=== PATIENT | female | born 1990 | race Caucasian/White ===

== ENCOUNTER 2017-09-27 06:00 | Inpatient (IN) | payer BC, OTHER ==
[~2017-09-27 06:00] MED LIST: Lactated Ringers 1,000 ML IV SCH; Sodium Chloride 0.9% 10 ML Syringe FLUSH PRN
[2017-09-27] MEDS ORDERED: Oxytocin/Normal Saline 30 UNIT/500 ML BAG IV SCH (07:00)
[2017-09-27] MEDS ORDERED: Citric Acid/Sodium Citrate Solution 30 ML Cup PO ONE ×2 (07:00→07:27)
[2017-09-27] MEDS ORDERED: ceFAZolin 2 GM in Premix Bag 1 BAG IV ONE ×2 (07:00→12:43)
[2017-09-27] MEDS ORDERED: Oxytocin/Normal Saline 60 UNIT/1,000 ML BAG ONE (07:21)
[2017-09-27] MEDS ORDERED: Famotidine 20 MG/2 ML SDV IVPUSH ONE (13:36)
[2017-09-27] MEDS ORDERED: Promethazine 25 MG/ML SDV IM ONE (13:37)
[2017-09-27] MEDS ORDERED: Ketorolac 30 MG/ML SDV ONE ×2 (15:42→22:02)
[2017-09-27] MEDS ORDERED: Ketorolac 30 MG/ML SDV IVPUSH ONE ×2 (16:00→22:07)
--- NOTE | 2017-09-27 18:20 | OR ---
DATE: 09/27/2017 PROCEDURES: 1. Elective repeat low-transverse section. 2. Pfannenstiel keloid scar revision. 3. Vacuum-assisted delivery. MOTORCYCLE DESIGNER: Hannah Lopez MD. PREOPERATIVE DIAGNOSES: 1. A 27-year-old, G3, P2, at 39 and 3/7 weeks' gestation. 2. Elective repeat low-transverse section. 3. Keloid scar. 4. A positive blood type. 5. Rubella immune. 6. Group B streptococcus negative. POSTOPERATIVE DIAGNOSES: 1. A 27-year-old, G3, now para 3, at 39 and 3/7 weeks' gestation. 2. Elective repeat low-transverse section. 3. Keloid scar, revised. 4. A positive blood type. 5. Rubella immune. 6. Group B streptococcus negative. 7. Viable female infant, 7 pounds 10 ounces, scores 9 and 9. 8. Extensive pelvic scarring with extremely thin lower uterine segment/uterine window. FINDINGS: This delightful 27-year-old, G3, P2, presented at 39 and 3/7 weeks' gestation for her scheduled elective repeat section and keloid scar revision. She had no further questions and we proceeded as scheduled. She received 2 g of Ancef IV preop on her way to the OR. She underwent spinal anesthesia with excellent results. She was prepped and draped in the usual sterile manner. A time-out was performed in my presence. A Garcia catheter had been placed. Her keloid scar was removed with the scalpel and cautery and discarded. Cautery was then used down through the subcutaneous tissue. She was found to have extensive scarring of the fascial area. It was quite difficult to develop fascial flaps. We were able to identify only a small amount of muscular tissue. We were able to develop the superior and inferior fascial flaps with blunt and sharp dissection, though it was extremely difficult as the tissue was essentially all scarred together. Much of the peritoneum was scarred onto the anterior aspect of the uterus. We were able to dissect this off with cautery and blunt dissection. There were filmy adhesions that were extremely adherent to the front part of the uterus and when these were , we did notice some fairly brisk bleeding from the left corner of the uterus. The previous scar was identified and was noted to be extremely thin. To avoid the left side, where the area risk of bleeding was, we did enter the old scar area on the central and right side with the scalpel and return of a large amount of clear fluid was noted. The incision was extended bilaterally and the vertex was elevated up into the incision. We extended it just enough to place the vacuum cup. The vacuum was then used to deliver the vertex, followed by the remainder of the baby without difficulty. The viable female infant was delivered and had scores of 9 and 9 at 1 and 5 minutes respectively and was later found to weigh 7 pounds 10 ounces and had spontaneous cry at . The cord was doubly clamped and cut and found to have 3 vessels and a cord blood sample was obtained. The baby was carried over to the awaiting parents by Dr. Lopez and then to the warmer and waiting nursery staff. The placenta was removed and later inspected and found to be complete intact with a central cord insertion and 3-vessel cord as noted. Uterus was wiped clean and dry. Was not exteriorized primarily due to the scarring. Examination of the gutter showed them to be dry. The bleeding on the left side had stopped. There was no sign of active bleeding and no significant clots. Small clot was removed from the left side. The anterior lower uterine segment was extremely thin. The uterine incision edges were grasped with Johnson forceps and closed with a running locking #1 Vicryl suture with excellent results. Examination showed it to be hemostatic. Gutters were again examined with no sign of bleeding or clots. The incision was examined and appeared hemostatic. We elected not to put a 2nd layer in. Dr. Lopez was excused from the case for an ER patient. Peritoneum and muscle layer were brought together with a running #1 Vicryl stitch with good results. The fascial layer was brought together with a looped PDS running stitch without complications. The subcutaneous layer was irrigated and examined. There was no sign of bleeding. The skin edges were brought together with juan luis. The uterus remained firm. No sign of active bleeding. The patient appeared stable. The Pitocin was running. IV infusion per protocol. ESTIMATED BLOOD LOSS: 300 mL. URINE OUTPUT: 100 mL of clear/harry urine. The patient was in stable condition and transferred to the recovery room. There were no intraoperative complications. With her excessive scarring and to very thin lower uterine segment, would recommend that if this patient has another delivery that she likely deliver where ENERGY ASSISTANT is available for her surgery, whether that be here in [place] with ENERGY ASSISTANT available for her at the time or at a tertiary center. We will follow other routine and postop orders and anticipate likely going home on postop day #2 or #3. Further management pending her clinical course. [facility] /[id number]
[2017-09-27] MEDS ORDERED: Promethazine 25 MG/ML SDV ONE (20:52)
[2017-09-28] MEDS ORDERED: Ketorolac 30 MG/ML SDV ONE (03:47)
[2017-09-28] MEDS ORDERED: Bisacodyl 10 MG Supp RECTAL PRN (11:10)
[2017-09-28] MEDS ORDERED: Ondansetron 4 MG/2 ML SDV IV PRN (11:11)
[2017-09-28] MEDS ORDERED: Promethazine 25 MG/ML SDV IM PRN (11:11)
[2017-09-28] MEDS ORDERED: Benzocaine/Menthol 20%-0.5% Spray 56 GM Canister TOP PRN (11:19)
[2017-09-28] MEDS ORDERED: Acetaminophen 500 MG Tab PO PRN (11:20)
[2017-09-28] MEDS ORDERED: Zolpidem 5 MG Tab PO PRN (11:21)
[2017-09-28] MEDS ORDERED: Hydrocortisone 2.5% Crm 30 GM Tube TOP PRN (11:22)
[2017-09-28] MEDS: Prenatal Multivitamin with Calcium/Folic Acid/Iron Tab PO SCH (11:42)
[2017-09-28] MEDS: Simethicone 80 MG Tab.Chew PO SCH ×4 (11:42→21:35)
[2017-09-28] MEDS: Docusate Sodium 100 MG Cap PO SCH ×2 (11:42→21:35)
[2017-09-28] MEDS: Acetaminophen/oxyCODONE 325-5 MG Tab PO PRN ×3 (12:19→21:35)
[2017-09-28] MEDS: Ibuprofen 600 MG Tab PO SCH ×3 (12:26→21:35)
--- NOTE | 2017-09-28 13:48 | PCM.SN ---
- Free Text/Narrative Note: 09-28-17 POD #1/ PPD #1 delivered yesterday ERCS has had a lot of itching with anesthesia, however, that is improving anesthesia resolving. hughes out, voiding ok. has had >7L out dressing off. no new drainage. incision looks good. eating ok. going well. VSS afebrile exam negative will check labs in a.m. tomorrow as not done due to excentos issues yesterday. All questions answered. hmb
[2017-09-28] MEDS: Sertraline 50 MG Tab PO SCH (17:18)
[2017-09-29] MEDS: Acetaminophen/oxyCODONE 325-5 MG Tab PO PRN ×5 (01:20→21:00)
[2017-09-29] MEDS: Ibuprofen 600 MG Tab PO SCH ×3 (08:27→18:18)
[2017-09-29] MEDS: Simethicone 80 MG Tab.Chew PO SCH ×4 (08:27→21:06)
[2017-09-29] MEDS: Docusate Sodium 100 MG Cap PO SCH ×2 (08:27→20:59)
[2017-09-29] MEDS: Prenatal Multivitamin with Calcium/Folic Acid/Iron Tab PO SCH (08:27)
[2017-09-29] MEDS: Sertraline 50 MG Tab PO SCH (08:28)
[2017-09-29] MEDS ORDERED: Oxytocin/Normal Saline 30 UNIT/500 ML BAG IV ONE (13:40)
[2017-09-29] MEDS ORDERED: diphenhydrAMINE 50 MG/ML SDV IV ONE (15:36)
[2017-09-29] MEDS ORDERED: Dexamethasone 4 MG/ML SDV IV ONE (15:36)
[2017-09-29] MEDS ORDERED: Ondansetron 4 MG/2 ML SDV IV ONE (15:36)
[2017-09-29] MEDS ORDERED: Ketorolac 30 MG/ML SDV IVPUSH ONE (15:36)
[2017-09-29] MEDS ORDERED: Lactated Ringers 1,000 ML IV ONE (15:36)
[2017-09-29] MEDS ORDERED: Morphine PF 1 MG/ML Amp ONE (15:36)
[2017-09-30] MEDS: Ibuprofen 600 MG Tab PO SCH ×2 (00:20→09:28)
[2017-09-30] MEDS: Acetaminophen/oxyCODONE 325-5 MG Tab PO PRN ×2 (00:52→05:07)
[2017-09-30] MEDS: Docusate Sodium 100 MG Cap PO SCH (08:10)
[2017-09-30] MEDS: Simethicone 80 MG Tab.Chew PO SCH (09:36)
[2017-09-30] MEDS: Prenatal Multivitamin with Calcium/Folic Acid/Iron Tab PO SCH (09:43)
--- NOTE | 2017-09-30 10:58 | PCM.SN ---
- Free Text/Narrative Note: DOS: 09-29-17 Progress Note: Post-op Day #2 Doing well. Eating, voiding, passing gas but hasn't had a BM yet. nursing going well. pain well controlled. Tearful at times, and would like to consider restarting her anti-depressant medication. after a discussion, would like to try Zoloft, and 25mg ordered. exam WNL afeb, VSS She would like to consider an Aquacel dressing after her shower for when she goes home tomorrow. Labs to be done before discharge. home tomorrow pending no problems. All questions answered. hmb
[2017-09-30] MEDS: Sertraline 50 MG Tab PO SCH (12:26)
[2017-09-30] MEDS ORDERED: Promethazine 25 MG/ML SDV IM ONE (12:44)
[2017-09-30 13:31] VITALS: BP 120/72
--- NOTE | 2017-10-04 07:09 | DISCH ---
FINAL DIAGNOSES: 1. A 27-year-old, G3, now P3. 2. A 39 and 3/7 weeks' gestation, elective repeat low-transverse section. 3. depression. 4. Viable female , 7 pounds 11 ounces. Apgars 9 and 9. 5. mother. 6. A positive blood type. 7. Rubella immune. 8. Group B strep negative. 9. Mild anemia/postop anemia. 10.Keloid scar with revision. PROCEDURES FOR THIS ADMISSION: Include: 1. NST interpretation. 2. Repeat elective low transverse section with vacuum-assisted delivery. 3. Keloid scar revision. FINDINGS: This delightful 27-year-old, G3, P2, presented at 39 and 3/7 weeks' gestation as scheduled for elective repeat section and keloid scar revision. Please see her admission H and P and her episode for details. Her NST was reactive. She underwent spinal anesthesia without complication. Her prior keloid scar was removed. We found extensive scarring encountered. Baby was delivered by vacuum assist. A viable female , weighing 7 pounds 11 ounces with scores of 9 and 9. Please see her delivery note for details. Other than the scarring, she had no intraoperative complications. Her postop and course have been uncomplicated. She has remained afebrile with stable vitals. Her clinical course has been unremarkable. Her spinal anesthesia has resolved without difficulty. She is ambulating well. Her Garcia catheter is removed and she is voiding without difficulty. She is eating and has now had a bowel movement. Her bladder and bowel function have returned without difficulty. She has had some depression symptoms and Zoloft has been started. Lab work showed a white count of 10.3 on admission with a recheck of 6.9, postop day #2. Hemoglobin 12.3 with a recheck of 11.3, platelet count 203 on admission with 170 on recheck. Incision is healing well. [place] intact. No sign of dehiscence or infection. She is requesting an Aquacel dressing which will be placed prior to discharge. She is examined on 09/30/2017, and found to be in excellent condition, ready for discharge to home today. Will be discharged home as noted in good condition with a prescription for Percocet 5/325 as she has had excellent pain control while she has been in the hospital. Take one q.i.d. p.r.n. for pain, dispensed #28 with no refills. Zoloft 25 mg daily for a total of 2 weeks, then increase up to 50 mg daily, prescription for 30 tablets with refill x6 of 50 mg tablets. She will continue with her vitamins, iron supplementation, will take her ibuprofen and stool softeners as needed. We will see her back in 1 week for staple removal and wound check and sooner with any problems. The usual and postop orders and instructions. All of her questions were answered. Further management pending her clinical course. [facility] /[id number]
== END 2017-09-30 13:30 | disposition home or self-care (01) | DRG 766 ==
LOC: DL.OB 06:00 → OBSVTOIN 08:35
PROVIDERS: ADMIT Family Medicine; ATTEND Family Medicine
PROC: 10D00Z1 Extraction of Products of Conception, Low, Open Approach (ICD-10-PCS; principal; 2017-09-27)
PROC: 10D07Z6 Extraction of Products of Conception, Vacuum, Via Natural or Artificial Opening (ICD-10-PCS; 2017-09-27)
PROC: 0HB7XZZ Excision of Abdomen Skin, External Approach (ICD-10-PCS; 2017-09-27)
DX: O34.211 Maternal care for low transverse scar from previous cesarean delivery (principal); L91.0 Hypertrophic scar; F53 Mental and behavioral disorders associated with the puerperium, not elsewhere classified; Z3A.39 39 weeks gestation of pregnancy; Z37.0 Single live birth
CPT/HCPCS: 36415; 59025; 85025; 85027; 86850; 86900; 86901; A9270-GY; J0690; J1100; J1200; J1885; J2274; J2405; J2550; J2590; J7120

== ENCOUNTER 2020-06-27 10:45 | Inpatient (IN) | payer OTHER ==
[~2020-06-27 10:45] MED LIST changes: +Acetaminophen 325 MG Tab PO PRN; +Carboprost Tromethamine 250 MCG/1 ML Amp IM PRN; -Lactated Ringers 1,000 ML IV SCH; +Methylergonovine 0.2 MG/1 ML Amp IM PRN; +Misoprostol 400 MCG (4 X 100 MCG TAB) RECTAL PRN; +Ondansetron 4 MG/2 ML SDV IVPUSH PRN; +Oxytocin/Normal Saline 60 UNIT/1,000 ML BAG ONE
[2020-06-27] MEDS: Lactated Ringers 1,000 ML IV SCH ×4 (10:45→19:25)
[2020-06-27] MEDS ORDERED: Citric Acid/Sodium Citrate Solution 30 ML Cup PO ONE (11:00)
[2020-06-27] MEDS ORDERED: Tranexamic Acid 1,000 MG in Sodium Chloride 0.9% 100 ML IV PRN (12:00)
[2020-06-27] MEDS ORDERED: ceFAZolin 2 GM in Premix Bag 1 BAG IV ONE (12:00)
[2020-06-27] MEDS ORDERED: Oxytocin/Normal Saline 30 UNIT/500 ML BAG IV SCH (12:00)
[2020-06-27] MEDS ORDERED: Oxytocin/Normal Saline 30 UNIT/500 ML BAG IV ONE (14:47)
[2020-06-27] MEDS ORDERED: Ondansetron 4 MG/2 ML SDV IV ONE (16:14)
[2020-06-27] MEDS ORDERED: Ketorolac 30 MG/ML SDV IVPUSH ONE (16:14)
[2020-06-27] MEDS ORDERED: Dexamethasone 4 MG/ML SDV IV ONE (16:14)
[2020-06-27] MEDS ORDERED: Lactated Ringers 1,000 ML IV ONE (16:14)
[2020-06-27] MEDS ORDERED: Morphine PF 1 MG/ML Amp IVPUSH ONE (16:14)
[2020-06-27] MEDS: Ketorolac 30 MG/ML SDV IVPUSH PRN (19:52)
[2020-06-27] MEDS ORDERED: diphenhydrAMINE 50 MG/ML SDV IVPUSH PRN (20:04)
[2020-06-27] MEDS: Docusate Sodium 100 MG Cap PO PRN (20:29)
[2020-06-28] MEDS: Ketorolac 30 MG/ML SDV IVPUSH PRN (02:00)
[2020-06-28] MEDS ORDERED: Acetaminophen/oxyCODONE 325-5 MG Tab PO PRN (08:25)
[2020-06-28] MEDS: Acetaminophen/oxyCODONE 325-5 MG Tab PO PRN ×3 (09:19→20:39)
[2020-06-28] MEDS: Prenatal Multivitamin with Calcium/Folic Acid/Iron Tab PO SCH (09:20)
[2020-06-28] MEDS: Simethicone 80 MG Tab.Chew PO PRN (09:22)
[2020-06-28] MEDS: Docusate Sodium 100 MG Cap PO PRN ×2 (09:33→20:39)
--- NOTE | 2020-06-28 11:30 | PN ---
DATE: 06/28/2020 SUBJECTIVE: The patient is postoperative day #1 status post repeat at term. This was her 4th . The patient is already tolerating p.o., ambulating, voiding, has good pain control. Baby is doing well. PHYSICAL EXAMINATION: Vital Signs: The patient is afebrile. Temp 36.9, heart rate 66, respiratory rate 16, blood pressure 107/74, and O2 sat 98%. Abdomen: The patient's abdomen is benign. Extremities: Have no tenderness, no edema. The patient is feeding her baby in the room. Blood type is A+. She is rubella immune. Hemoglobin prior to delivery was 10.9. Her CBC is still pending this morning. She is COVID negative. ASSESSMENT AND PLAN: day 1, status post repeat . Mom and baby are both doing well. We will follow up on her CBC, and this patient likely would want to be discharged tomorrow as long as her and baby are doing well. [facility] /[id number] CECI
--- NOTE | 2020-06-28 12:34 | OR ---
DATE: 06/27/2020 LOCATION: [facility]. PREOPERATIVE DIAGNOSIS: This is an intrauterine at 39 weeks' gestational age with a history of section x3. POSTOPERATIVE DIAGNOSIS: This is an intrauterine at 39 weeks' gestational age with a history of section x3. PROCEDURE: Repeat low-transverse section. SURGEON: Dr. Ayala. PASTRY SUPERVISOR: Dr. Carranza. ANESTHESIA: Spinal. FINDINGS: There was a viable and normal female anatomy. ESTIMATED BLOOD LOSS: 500 mL. PROCEDURE IN DETAIL: The patient was taken to the operating room where she was prepped and draped in a normal sterile fashion with a Garcia in place and a leftward tilt. Spinal anesthesia was then found to be adequate. The old Pfannenstiel scar was excised using a scalpel, carried down to the underlying fascia. The fascia was incised in the midline. Fascial incision was extended laterally using the heavy scissors. Upper aspect of the fascia was grasped with Haroon clamps and the rectus muscles were dissected off bluntly and with heavy scissors. The lower aspect of the fascia was grasped with Haroon clamps and again the rectus muscles were dissected off bluntly and with the scissors. At this point in time, the peritoneum had already been entered. It was stretched open. Bladder blade was inserted. The vesicouterine peritoneum was grasped with a pickup, entered sharply with the Metzenbaum scissors, and a bladder flap was created digitally. The lower uterine segment was incised in a transverse fashion with the scalpel. AROM was clear and the incision was extended using the Hernandez method. 's head was grasped and the infant was delivered without any difficulty. The cord was cut and clamped. The infant was taken over to the warmer with the Labor and Delivery nurse. The placenta was then manually extracted. Uterus was exteriorized, cleared of all clots and debris, and the hysterotomy was repaired with a running locked 0 Vicryl with 1 [id number] for excellent hemostasis. The ovaries, tubes, and uterus all appeared normal. The adhesive disease in the abdomen was very minimal. No adhesions to the anterior abdominal wall. Therefore, the uterus was returned to the abdomen and pelvis was copiously irrigated. The peritoneum was reapproximated using a 3-0 Vicryl. Fascia was repaired using a running 0 Vicryl. Subcutaneous fat was irrigated and the skin was repaired using a 4-0 Monocryl on a Julián needle with Steri-Strips over that. The patient tolerated the procedure well. Sponge, lap, needle counts were correct x2. The patient was taken to the recovery room in stable condition. Her infant was receiving some CPAP. I did inform the patient that the adhesive disease in her abdomen and pelvis appeared now to be minimal and I felt as though a laparoscopic tubal ligation could be an option down the road. [facility] /[id number] MTDD
[2020-06-28] MEDS: Ibuprofen 800 MG Tab PO PRN ×2 (14:14→21:47)
[2020-06-29] MEDS: Acetaminophen/oxyCODONE 325-5 MG Tab PO PRN ×5 (05:38→21:39)
[2020-06-29] MEDS: Ibuprofen 800 MG Tab PO PRN ×3 (05:40→21:40)
[2020-06-29] MEDS ORDERED: Prenatal Multivitamin with Calcium/Folic Acid/Iron Tab PO SCH (08:00)
[2020-06-29] MEDS: Simethicone 80 MG Tab.Chew PO PRN ×2 (09:01→23:42)
[2020-06-29] MEDS: Docusate Sodium 100 MG Cap PO PRN ×2 (09:02→23:42)
[2020-06-29] MEDS: Prenatal Multivitamin with Calcium/Folic Acid/Iron Tab PO SCH (09:02)
[2020-06-29] MEDS ORDERED: Polyethylene Glycol 3350 Powder 17 GM Packet PO SCH (10:15)
[2020-06-29] MEDS ORDERED: Polyethylene Glycol 3350 Powder 17 GM Packet PO PRN (11:30)
--- NOTE | 2020-06-29 12:01 | PN ---
DATE: 06/29/2020 LOCATION: [facility]. SUBJECTIVE: The patient is postoperative day 2 status post repeat . Mom and baby are both doing well. The patient is tolerating p.o., ambulating, voiding. She is a little sore. PHYSICAL EXAMINATION: Vital Signs: Temp 36.4, heart rate 69, blood pressure 112/75, respiratory rate 16, and O2 sat 98%. Abdomen: Benign. The incision is healing. Dressing has been removed. Extremities: Have no tenderness, no edema. LABORATORY DATA: Predelivery hemoglobin was 10.9, postoperative hemoglobin is 11.3, white count 9.1, platelets 229. The patient is COVID negative. The patient's blood type is A positive and she is rubella immune. ASSESSMENT AND PLAN: Postoperative day 2 status post repeat . Mom and baby are both doing well. We will continue postop cares, likely discharge tomorrow. This patient is considering a consult with me for a laparoscopic tubal ligation. [facility] /[id number] MTDFrancisco
[2020-06-30] MEDS: Acetaminophen/oxyCODONE 325-5 MG Tab PO PRN ×3 (02:35→10:42)
[2020-06-30] MEDS: Ibuprofen 800 MG Tab PO PRN (06:28)
[2020-06-30 09:31] VITALS: BP 116/71; PULSE 110
[2020-06-30] MEDS: Docusate Sodium 100 MG Cap PO PRN (10:42)
[2020-06-30] MEDS: Prenatal Multivitamin with Calcium/Folic Acid/Iron Tab PO SCH (10:42)
--- NOTE | 2020-07-16 04:34 | DISCH ---
FINAL DIAGNOSES: 1. A 30-year-old 4, now para 4, at 38 weeks' gestation, delivered by elective repeat low transverse section. 2. Viable male , 7 pounds 4 ounces/3295 g with scores of 2, 6, and 9. 3. Keloid scar revision. 4. A positive blood type. 5. Rubella immune. 6. Group B strep negative. 7. Coronavirus disease negative. 8. Nonstress test, reactive on admission. 9. History of depression. PROCEDURE: Elective repeat low transverse section by Dr. Yinka Ayala on 06/27/2020. ASSISTED BY: Cecy Hassan MD FINDINGS: This delightful 30-year-old 4, para 3, presented at 38 weeks' gestation as scheduled for an elective repeat section. She had a history of extensive scarring, very thin lower uterine segment, and keloid scarring. It was felt in her best interest to deliver with MANUFACTURING RECRUITER present, and she was subsequently scheduled when Dr. Ayala was available. He was assisted by Dr. Carranza. Please see her admission H and P, which was done by me and her operative note, which was dictated by Dr. Ayala. She delivered a viable male , weighing 7 pounds 4 ounces/3295 g without complications. His scores were 2, 6, and 9 at one, five, and ten minutes respectively. Her surgery was uncomplicated with an estimated blood loss of 500 mL. The extensive scarring seen at her last section appeared to now be minimal and had not recurred after we took some of her adhesions down last time. Because of this, we did feel that a laparoscopic tubal ligation would be an option for her down the road as she had been interested in this as a consideration. Please see his operative note for further details. HOSPITAL COURSE: Her postop course was uneventful. Admission hemoglobin 10.9 with followup of 11.3. Her white count was normal on admission and followup and her platelet count was 205 with a recheck of 229. She remained afebrile throughout her hospitalization. Her vitals were stable. Her incision remained intact with no sign of dehiscence or infection. Her anesthesia resolved and she was ambulating without difficulty. Her Garcia catheter was removed and she was voiding well. Her bowel and bladder function returned. She was eating without nausea and vomiting. Breast-feeding. The patient was ready for discharge home on 06/30/2020 in good condition. She was seen by myself that day and discharge orders and instructions were given. I will see her back in 1 week for a recheck and sooner with any problems and then for a routine 6-week checkup. Prescription written for Percocet , #28, 1 q.i.d. p.r.n. She will continue her ibuprofen, vitamin, and iron as needed. All of her questions were answered. CONDITION AT DISCHARGE: Good. Further management pending her clinical course. [facility] /[id number]
== END 2020-06-30 11:10 | disposition home or self-care (01) | DRG 788 ==
LOC: DL.OB 10:45 → OBSVTOIN 12:39
PROVIDERS: ADMIT Family Medicine; ATTEND Family Medicine
PROC: 10D00Z1 Extraction of Products of Conception, Low, Open Approach (ICD-10-PCS; principal; 2020-06-27)
DX: O34.211 Maternal care for low transverse scar from previous cesarean delivery (principal); Z3A.38 38 weeks gestation of pregnancy; Z37.0 Single live birth; Z20.828 Contact with and (suspected) exposure to other viral communicable diseases
CPT/HCPCS: 01961; 36415; 59025; 85025; 85027; 86850; 86900; 86901; A9270-GY; J0690; J1100; J1200; J1885; J2274; J2405; J2590; J7120; U0002